=== PATIENT | female | born 1985 | race Caucasian/White ===

== ENCOUNTER 2017-12-20 20:49 | Emergency (ER) | payer SELFPAY ==
[~2017-12-20] VITALS: Ht 152.4 cm; Wt 96.0 kg
[2017-12-20] MEDS ORDERED: DEXAMETHASONE 10 MG/ML VIAL IV ONE (22:00)
[2017-12-20] MEDS ORDERED: LORAZEPAM 2MG/ML CPJ IV ONE (22:00)
[2017-12-20] MEDS ORDERED: LEVETIRACETAM 500MG PREMIX 100 ML IV ONE (22:45)
[2017-12-20 23:24] LABS: BASOPHILS % 0.7 % (0.0-2.0); CHLORIDE 108 mEq/L (98-107); EOSINOPHILS % 2.7 % (0.0-5.0); HEMATOCRIT. 37.8 % (36.0-48.0); HEMOGLOBIN. 12.5 g/dL (12.0-16.0); LYMPHOCYTES % 25.9 % (20.0-50.0); MEAN CORPUSCULAR HEMOGLOBIN 26.1 pg (28.0-32.0); MEAN CORPUSCULAR VOLUME 78.9 fL (81.0-99.0); NEUTROPHILS % 61.7 % (40.0-76.0); PLATELET 382 x1000/uL (130-400); RED CELL DISTRIBUTION WIDTH 14.8 % (11.6-14.6)
[2017-12-21 02:32] VITALS: BP 106/63
== END 2017-12-21 02:58 | disposition home or self-care (01) ==
LOC: ER 20:49
DX: G40.909 Epilepsy, unspecified, not intractable, without status epilepticus (principal); D49.6 Neoplasm of unspecified behavior of brain; Z88.0 Allergy status to penicillin; Z88.1 Allergy status to other antibiotic agents
CPT/HCPCS: 36415; 70450; 80053; 85025; 96365; 96375; 99285; J1953; J2060; Z7610; J1100